=== PATIENT | female | born 1960 | race Caucasian/White ===

== ENCOUNTER 2017-06-08 09:03 | Emergency (ER) | payer BC ==
[~2017-06-08] VITALS: Ht 167.6 cm; Wt 108.9 kg
[~2017-06-08 09:03] MED LIST: LISINOPRIL20 MG PO; METFORMIN HCL500 MG PO
[2017-06-08] MEDS ORDERED: TAMIFLU75 MG PO (09:25)
[2017-06-08] MEDS ORDERED: ZITHROMAX1 GM PO (09:25)
== END 2017-06-08 09:32 | disposition home or self-care (01) ==
LOC: ED 09:03
DX: J11.1 Influenza due to unidentified influenza virus with other respiratory manifestations (principal); E11.9 Type 2 diabetes mellitus without complications; I10 Essential (primary) hypertension; Z88.5 Allergy status to narcotic agent; Z79.84 Long term (current) use of oral hypoglycemic drugs; Z79.899 Other long term (current) drug therapy
CPT/HCPCS: 99283

== ENCOUNTER → 2018-05-12 | Day surgery (SDC) | payer BC ==
[~2018-05-12] MED LIST changes: +IBUPROFEN600 MG PO; +LEVOTHYROXINE50 MCG PO; +LISINOPRIL-HCT1 EACH PO; +MAPAP325 MG PO; +MELATONIN1 MG PO; +METFORMIN HCL1000 MG PO; +OXYCODON-ACETA1 EAC2 PO; +TAMIFLU75 MG PO; +ZITHROMAX1 GM PO
--- NOTE | 2018-05-13 23:51 | OR ---
[facility] [address] [place] [address] Signed DATE OF OPERATION: 05/12/2018 SURGEON: Erich Ramirez MD PREOPERATIVE DIAGNOSIS: Right thyroid nodule, 16 mm in size. POSTOPERATIVE DIAGNOSIS: Right thyroid nodule, 16 mm in size. PROCEDURE PERFORMED: Ultrasound-guided fine-needle aspiration biopsy of right thyroid nodule. ANESTHESIA: 1% lidocaine. INDICATION: This 58-year-old white woman is a patient of JUAN Dougherty, and is referred for right lower pole solid thyroid nodule. She came to attention for this nodule based on a CT scan which showed a nodule in the right thyroid lobe. An ultrasound was then performed, which measured the lesion to be 16 x 14 x 13 mm. The remaining thyroid lobe was normal as is the left lobe. She has somewhat thickened neck and the lesion is not palpated for certain and on that basis, I have recommended image-guided biopsy. The risks of bleeding, infection, and failure of diagnosis were reviewed in detail. She understands and wished to proceed. FINDINGS: The lesion in question was easily identified in the right thyroid lobe. Carotid artery and jugular vein were easily identified as well. Direct puncture of the lesion was undertaken under ultrasound guidance allowing for multiple passes through the lesion. There was some bloody of fluid initially aspirated, which makes me think there may be central necrosis to the site. DESCRIPTION OF PROCEDURE: In the Day Surgery area, she was placed in a supine position with pillows behind her shoulders. Her head was turned to the left and interrogation of the neck with an ultrasound device ([employer]) was undertaken easily identifying the trachea, the right thyroid lobe, the carotid artery, and jugular vein. The lesion in question was identified and affirmed to be the right lobe. Examination on the left side was Electronically Signed By: ERICH RAMIREZ MD 05/13/18 8785 PATIENT NAME: LUTHER JOE OPERATIVE REPORT DATE OF : 58 REPORT #: [id number] PHYSICIAN: ERICH RAMIREZ MD PCP: JOSE VASQUEZ REPORT IS CONFIDENTIAL AND NOT TO BE RELEASED WITHOUT AUTHORIZATION [facility] [address] [place], [place] [address] Signed undertaken after turning her head to the right showing no lesion on that side. Her head was returned to the left facing position and the gel removed. Area in question was prepared with a chlorhexidine solution and sterile drapes were placed around her as well. Ultrasound was then undertaken again identifying the lesion in question, small amount of lidocaine 1% was injected in the area anticipated as the entry point for the needle. Using a control guide syringe device and a 22-gauge needle, passage under direct ultrasonographic visualization to the lesion in question was undertaken. Multiple passes were taken through the lesion showing a bit of blood. Clearly, there was no puncture of any large vessel, however. The specimen was removed and aspirated into CytoLyt solution and reinjected into the solution. A new needle was obtained and repeat aspiration under direct visualization undertaken with multiple passes through the nodule in question. This was less bloody. I suspect maybe central necrosis to the lesion. Ultrasound was removed and examination showed no bleeding. Small Band-Aid was applied. Images were taken of the lesion, though not during the course of aspiration proper. She tolerated it well. Erich Ramirez MD JM/MODL /[id number] cc: JUAN Dougherty Copies: JOSE VASQUEZ ~ Electronically Signed By: ERICH RAMIREZ MD 05/13/18 2351 PATIENT NAME: LUTHER JOE OPERATIVE REPORT DATE OF : 58 REPORT #: [id number] PHYSICIAN: ERICH RAMIREZ MD PCP: JOSE VASQUEZ REPORT IS CONFIDENTIAL AND NOT TO BE RELEASED WITHOUT AUTHORIZATION
== END ==
LOC: OPS 12:43 → EDSTATUS 13:00 → OPS 13:00 → DS 13:00
PROC: 0GBH3ZX Excision of Right Thyroid Gland Lobe, Percutaneous Approach, Diagnostic (ICD-10-PCS; principal; 2018-05-12)
PROC: BG44ZZZ Ultrasonography of Thyroid Gland (ICD-10-PCS; 2018-05-12)
DX: E04.1 Nontoxic single thyroid nodule (principal); E11.9 Type 2 diabetes mellitus without complications; E66.01 Morbid (severe) obesity due to excess calories; I10 Essential (primary) hypertension; E03.9 Hypothyroidism, unspecified; Z68.37 Body mass index [BMI] 37.0-37.9, adult; Z88.5 Allergy status to narcotic agent

== ENCOUNTER 2018-05-20 07:00 | Observation (INO) | payer BC ==
[~2018-05-20] VITALS: Ht 167.6 cm; Wt 105.7 kg
[~2018-05-20 07:00] MED LIST changes: -IBUPROFEN600 MG PO; -LISINOPRIL-HCT1 EACH PO; -MAPAP325 MG PO; -MELATONIN1 MG PO; -METFORMIN HCL1000 MG PO; -OXYCODON-ACETA1 EAC2 PO
[2018-05-20] MEDS ORDERED: MELATONIN1 MG PO (07:22)
[2018-05-21] MEDS ORDERED: LISINOPRIL-HCT1 EACH PO (09:11)
[2018-05-21] MEDS ORDERED: METFORMIN HCL1000 MG PO (09:12)
[2018-05-21] MEDS ORDERED: MAPAP325 MG PO (09:43)
[2018-05-21] MEDS ORDERED: OXYCODON-ACETA1 EAC2 PO (09:43)
[2018-05-21] MEDS ORDERED: IBUPROFEN600 MG PO (09:43)
--- NOTE | 2018-05-23 15:01 | OR ---
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 POSTOPERATIVE DIAGNOSES: 1. 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 2. [place] thyroidal lymph node negative for metastatic disease. PROCEDURES: 1. Right total thyroid lobectomy with isthmusectomy. 2. Excisional biopsy of perithyroidal lymph node. ANESTHESIA: General endotracheal; Sven Davis CRNA. INDICATION: This 58-year-old white woman is a patient of Jose Mendoza. She underwent a CT scan of the chest and neck for unrelated reasons and was incidentally found to have a neoplasm of the right thyroid lobe. An ultrasound confirmed a single nodule in the right thyroid lobe that was 1.6 cm in size. The left lobe was entirely normal. I have performed ultrasound-guided fine-needle aspiration biopsy of the nodule, which was consistent with papillary thyroid carcinoma. She has no evidence of metastatic disease regionally or distantly. Her options of management have been reviewed with her, which include thyroid lobectomy versus total thyroidectomy. The patient strongly wants to avoid total thyroidectomy unless absolutely necessary. ADA guideline support hemithyroidectomy with a nodule of the size unless other factors should be brought to bear intraoperatively. The risks of bleeding, infection, the right recurrent laryngeal nerve injury, parathyroid excision that is unintended or other unforeseen complications were reviewed in detail. She does allow for total thyroidectomy if absolutely necessary, but otherwise wishes to preserve the left thyroid lobe. FINDINGS: The thyroid was surprisingly small despite the patient body habitus. The lesion in question was in the lower pole on the right side was very dense and hard and highly consistent with malignancy. There was one parathyroidal lymph node that was obviously Electronically Signed By: ERICH RAMIREZ MD 05/23/18 1501 PATIENT NAME: LUTHER JOE OPERATIVE REPORT DATE OF : 58 REPORT #: [id number] PHYSICIAN: ERICH RAMIREZ MD PCP: JOSE MENDOZA REPORT IS CONFIDENTIAL AND NOT TO BE RELEASED WITHOUT AUTHORIZATION [facility] [address] [place], [place] [address] Signed observed and this was independently excised and passed for pathology showing no sign of thyroid carcinoma metastatic to it. On that basis, thyroid lobectomy with isthmusectomy alone was performed. Examination of the left lobe showed two small uniform without sign of nodule or other suspicious features. The right recurrent laryngeal nerve was readily identified as was the right superior pole, parathyroid gland, both of which was completely unharmed. Photographs were taken. DESCRIPTION OF PROCEDURE: The patient was brought to the operating room, given a general endotracheal anesthetic. A shoulder roll was placed and mild extension of the neck undertaken. The arms were placed at the side. Preoperative antibiotic Ancef was given. Sequential compression device stockings. The neck and upper torso were prepared with a chlorhexidine solution and draped sterilely. She had a natural skin crease most optimal for incision. This was marked and incision made between the medial borders of the sternocleidomastoid muscle bilaterally. Dissection was carried through the dermis sharply and with electrocautery. The subcutaneous tissue and platysma muscle was divided. Superior and inferior flaps were developed with blunt and electrocautery dissection. Gelpi retractors were placed and the avascular midline of the strap muscles was identified and incised vertically. The sternohyoid and sternothyroid muscles were sharply dissected free and retracted laterally revealing the underlying thyroid lobe. The thyroid lobe was surprisingly small given her body habitus. Palpation in the lower aspect demonstrated very hard mass consistent with the lesion in question. Using sharp and blunt dissection, the loose areolar tissue around the thyroid gland was dissected free. Small vessels mostly thyroidal veins were independently ligated with 4-0 silk ties and divided. The superior pole was similarly dissected free with individual ligation of the vessels. A hemostat was applied to the main body of the thyroid, allowing for gentle retraction to the midline. The inferior pole was freed using blunt and sharp dissection and independent ligation of vessels undertaken there as well. [id number] blunt dissector was used to gently dissect the posterior aspect of the thyroid away from the underlying soft tissue ultimately identifying the recurrent laryngeal nerve, which was well out of harm's way. Care was taken to avoid electrocautery in the region as well. With blunt dissection and sharp dissection, the thyroid was freed from the ligament of Garvey and the thyroid was rolled to the midline in the avascular plane over the trachea. Noted was a narrow pyramidal lobe. The anterior aspect of the thyroid was a small thyroidal lymph node. This was excised independently and passed for pathology. If the regional lymph node was positive for metastatic papillary carcinoma, total thyroidectomy would certainly be indicated. Hemostats were applied to the isthmus near the border of the left lobe. The tissue was divided and the specimen passed for permanent pathology. The pedicles were ligated with 4-0 silk sutures. By this point, the frozen pathology returned showing no evidence of metastatic disease to the regional perithyroidal lymph node. Irrigation was undertaken in the right neck. Some dissection Electronically Signed By: ERICH RAMIREZ MD 05/23/18 1501 PATIENT NAME: ANN JOEENE WILLIS OPERATIVE REPORT DATE OF : 58 REPORT #: [id number] PHYSICIAN: ERICH RAMIREZ MD PCP: JOSE MENDOZA REPORT IS CONFIDENTIAL AND NOT TO BE RELEASED WITHOUT AUTHORIZATION [facility] [address] [place] [id number] Signed of the left gland was undertaken freeing the strap muscles over it, identifying very small remnant of thyroid tissue and no suspicious nodules and uniform texture to the left lobe. Reexamination in the superior aspect of the right trachea showed an intact parathyroid gland as well. Hemostasis was considered quite good. Plans were then made for closure. The midline strap muscles reapproximated with interrupted 2-0 Vicryl suture. The platysmal layer reapproximated with interrupted 2-0 Vicryl and skin closed with running subcuticular 4-0 Vicryl. Steri-Strips were applied as was a Mepilex silver sponge dressing. The patient was extubated without problem, taken to recovery room in good condition having suffered no complication. Blood loss was minimal. Sponge, needle, and instrument counts were reported correct x3. MD RENAE Woodall/IRVING /[id number] cc: JUAN Dougherty Copies: JOSE MENDOZA ~ Electronically Signed By: ERICH RAMIREZ MD 05/23/18 1501 PATIENT NAME: LUTHER JOE OPERATIVE REPORT DATE OF : 58 REPORT #: [id number] PHYSICIAN: ERICH RAMIREZ MD PCP: JOSE MENDOZA REPORT IS CONFIDENTIAL AND NOT TO BE RELEASED WITHOUT AUTHORIZATION
== END 2018-05-21 10:45 | disposition home or self-care (01) ==
LOC: DS 07:00 → MS 11:27
PROVIDERS: ADMIT Surgery
PROC: 07B10ZX Excision of Right Neck Lymphatic, Open Approach, Diagnostic (ICD-10-PCS; 2018-05-20)
PROC: 0GTH0ZZ Resection of Right Thyroid Gland Lobe, Open Approach (ICD-10-PCS; principal; 2018-05-20 08:00)
DX: C73 Malignant neoplasm of thyroid gland (principal); E11.9 Type 2 diabetes mellitus without complications; I10 Essential (primary) hypertension; E03.9 Hypothyroidism, unspecified; E66.9 Obesity, unspecified; Z88.5 Allergy status to narcotic agent; Z79.84 Long term (current) use of oral hypoglycemic drugs; Z79.899 Other long term (current) drug therapy; Z68.37 Body mass index [BMI] 37.0-37.9, adult
CPT/HCPCS: 00320; 94762; 96361; 96374; G0378; J0131; J0690; J1100; J2250; J2405; J2704; J2765; J3010; J7120